=== PATIENT | female | born 1990 | race African-American/Black ===

== ENCOUNTER 2019-04-09 09:33 | Inpatient (IN) | payer OTHER ==
[~2019-04-09] VITALS: Ht 165.1 cm; Wt 90.7 kg
[2019-04-09] MEDS ORDERED: MAGNESIUM/ALUMINUM HYDROXIDE/SIMETHICONE 30ML UDC PO STA (11:22)
[2019-04-09] MEDS ORDERED: MORPHINE SULFATE 4 MG/ML CPJ (NOT FOR IM USE) IV STA (11:22)
[2019-04-09] MEDS ORDERED: FAMOTIDINE 20MG/2ML VIAL IV STA (11:22)
[2019-04-09] MEDS ORDERED: VISCOUS LIDOCAINE 2% 15 ML UDC PO STA (11:22)
[2019-04-09] MEDS ORDERED: SODIUM CHLORIDE 0.9% 1,000 ML IV ONE (11:22)
[2019-04-09 11:44] LABS: BASOPHILS % 0.9 % (0.0-2.0); EOSINOPHILS % 0.8 % (0.0-5.0); HEMATOCRIT. 39.2 % (36.0-48.0); HEMOGLOBIN. 12.8 g/dL (12.0-16.0); LYMPHOCYTES % 25.8 % (20.0-50.0); MEAN CORPUSCULAR HEMOGLOBIN 28.8 pg (28.0-32.0); MEAN CORPUSCULAR VOLUME 87.8 fL (81.0-99.0); MEAN PLATELET VOLUME 7.8 fl (7.4-10.4); NEUTROPHILS % 65.5 % (40.0-76.0); PLATELET 372 x1000/uL (130-400); RED BLOOD CELL COUNT 4.46 mill/uL (4.2-5.4); RED CELL DISTRIBUTION WIDTH 15.4 % (11.6-14.6)
[2019-04-09 11:48] LABS: CHLORIDE 105 mEq/L (98-107)
[2019-04-09 13:29] LABS: CLARITY URINE CLOUDY (CLEAR); COLOR URINE DARK YELLOW (YELLOW); KETONES URINE TRACE (NEGATIVE); LEUKOCYTE ESTERASE URINE 2+ (NEGATIVE); NITRITE URINE POSITIVE (NEGATIVE); OCCULT BLOOD URINE NEGATIVE (NEGATIVE); PROTEIN URINE NEGATIVE (NEGATIVE); SPECIFIC GRAVITY URINE 1.022 (1.005-1.030)
[2019-04-09] MEDS ORDERED: CEFTRIAXONE 1 G PREMIX 50 ML IV SCH (14:00)
[2019-04-09] MEDS ORDERED: MORPHINE SULFATE 4 MG/ML CPJ (NOT FOR IM USE) IV ONE (14:30)
[2019-04-09] MEDS ORDERED: CEFTRIAXONE 2 G PREMIX 50 ML IV ONE (14:30)
[2019-04-09] MEDS ORDERED: ONDANSETRON HCL 4MG/2ML INJ IV ONE (14:30)
[2019-04-09] MEDS ORDERED: MAGNESIUM/ALUMINUM HYDROXIDE/SIMETHICONE 30ML UDC PO PRN (18:15)
[2019-04-09] MEDS ORDERED: ACETAMINOPHEN 325MG TABLET PO PRN (18:15)
[2019-04-09] MEDS ORDERED: CLONIDINE 0.1MG TABLET PO PRN (18:15)
[2019-04-09] MEDS: DEXT 5%/0.45% NACL 1000ML 1,000 ML IV SCH (18:34)
[2019-04-09] MEDS: MORPHINE SULFATE 2 MG/ML CPJ (NOT FOR IM USE) IV PRN (20:44)
[2019-04-09] MEDS: ONDANSETRON HCL 4MG/2ML INJ IV PRN (20:45)
[2019-04-09 22:15] VITALS: BP 126/80
[2019-04-10] VITALS: BP 126/80
[2019-04-10] MEDS: MORPHINE SULFATE 2 MG/ML CPJ (NOT FOR IM USE) IV PRN ×3 (00:47→19:42)
[2019-04-10] MEDS: ONDANSETRON HCL 4MG/2ML INJ IV PRN ×2 (00:47→19:48)
[2019-04-10 04:00] VITALS: BP 142/80
[2019-04-10 05:54] LABS: BASOPHILS % 0.5 % (0.0-2.0); EOSINOPHILS % 0.8 % (0.0-5.0); HEMATOCRIT. 36.6 % (36.0-48.0); HEMOGLOBIN. 11.9 g/dL (12.0-16.0); LYMPHOCYTES % 29.7 % (20.0-50.0); MEAN CORPUSCULAR HEMOGLOBIN 28.9 pg (28.0-32.0); MEAN PLATELET VOLUME 8.2 fl (7.4-10.4); MONOCYTES % 7.5 % (2.0-8.0); NEUTROPHILS % 61.5 % (40.0-76.0); PLATELET 308 x1000/uL (130-400); RED BLOOD CELL COUNT 4.11 mill/uL (4.2-5.4); RED CELL DISTRIBUTION WIDTH 15.3 % (11.6-14.6)
[2019-04-10 06:45] LABS: CHLORIDE 110 mEq/L (98-107)
[2019-04-10 08:00] VITALS: BP 130/67
[2019-04-10 12:00] VITALS: BP 134/74
[2019-04-10 16:00] VITALS: BP 113/59
[2019-04-10] MEDS ORDERED: CEFTRIAXONE 1 G PREMIX 50 ML IV SCH (17:00)
[2019-04-10 18:36] LABS: AMYLASE 35 IU/L (25-115)
[2019-04-10] MEDS: DEXT 5%/0.45% NACL 1000ML 1,000 ML IV SCH ×2 (19:51)
[2019-04-10 20:00] VITALS: BP 122/71
[2019-04-11] VITALS: BP 110/53
[2019-04-11] MEDS: MORPHINE SULFATE 2 MG/ML CPJ (NOT FOR IM USE) IV PRN ×3 (01:12→23:58)
[2019-04-11 04:00] VITALS: BP 115/63
[2019-04-11 06:00] LABS: CHLORIDE 108 mEq/L (98-107)
[2019-04-11 06:30] LABS: BASOPHILS % 0.5 % (0.0-2.0); EOSINOPHILS % 1.3 % (0.0-5.0); HEMATOCRIT. 34.7 % (36.0-48.0); HEMOGLOBIN. 11.4 g/dL (12.0-16.0); MEAN CORPUSCULAR VOLUME 88.1 fL (81.0-99.0); MONOCYTES % 7.9 % (2.0-8.0); NEUTROPHILS % 50.3 % (40.0-76.0); PLATELET 318 x1000/uL (130-400); RED BLOOD CELL COUNT 3.94 mill/uL (4.2-5.4); RED CELL DISTRIBUTION WIDTH 15.2 % (11.6-14.6)
[2019-04-11 08:00] VITALS: BP 102/60
[2019-04-11] MEDS: DEXT 5%/0.45% NACL 1000ML 1,000 ML IV SCH (09:39)
[2019-04-11 12:00] VITALS: BP 145/77
[2019-04-11 15:41] LABS: HEPATITIS B SURFACE ANTIGEN NEGATIVE
[2019-04-11 16:00] VITALS: BP 139/76
[2019-04-11 16:07] LABS: HEPATITIS A AB IGM NEGATIVE (NEGATIVE)
[2019-04-11] MEDS: ONDANSETRON HCL 4MG/2ML INJ IV PRN (18:32)
[2019-04-11 20:00] VITALS: BP 116/61
[2019-04-12] VITALS: BP 130/82
[2019-04-12 04:00] VITALS: BP 112/66
[2019-04-12 07:06] LABS: CHLORIDE 108 mEq/L (98-107)
[2019-04-12 07:17] LABS: BASOPHILS % 0.6 % (0.0-2.0); EOSINOPHILS % 1.6 % (0.0-5.0); HEMATOCRIT. 34.7 % (36.0-48.0); HEMOGLOBIN. 11.7 g/dL (12.0-16.0); LYMPHOCYTES % 34.2 % (20.0-50.0); MEAN CORPUSCULAR HEMOGLOBIN 29.4 pg (28.0-32.0); MEAN CORPUSCULAR VOLUME 87.2 fL (81.0-99.0); MONOCYTES % 8.6 % (2.0-8.0); PLATELET 328 x1000/uL (130-400); RED BLOOD CELL COUNT 3.98 mill/uL (4.2-5.4); RED CELL DISTRIBUTION WIDTH 15.4 % (11.6-14.6)
[2019-04-12 08:00] VITALS: BP 119/67
[2019-04-12 12:00] VITALS: BP 127/64
[2019-04-12] MEDS: DEXT 5%/0.45% NACL 1000ML 1,000 ML IV SCH (12:54)
[2019-04-12] MEDS ORDERED: IOHEXOL-300 100 ML BOTTLE ONE (13:08)
[2019-04-12] MEDS ORDERED: SIMETHICONE 40 MG/0.6 ML 30ML ONE (13:08)
[2019-04-12] MEDS ORDERED: ROCURONIUM BROMIDE 10MG/ML VIAL 5ML IV ONE (14:04)
[2019-04-12] MEDS ORDERED: PROPOFOL 200MG/20ML VIAL IV ONE (14:04)
[2019-04-12] MEDS ORDERED: NEOSTIGMINE METHYLSULFATE 1MG/ML 10 ML VIAL ONE (14:04)
[2019-04-12] MEDS ORDERED: FENTANYL CITRATE/PF 50MCG/ML 2ML VIAL ONE (14:04)
[2019-04-12] MEDS ORDERED: MIDAZOLAM HCL 2 MG/2 ML VIAL ONE (14:05)
[2019-04-12] MEDS ORDERED: GLYCOPYRROLATE 0.2 MG/ML 2ML VIAL ONE ×2 (14:05→14:53)
[2019-04-12] MEDS ORDERED: ONDANSETRON HCL 4MG/2ML INJ ONE (14:17)
[2019-04-12] MEDS ORDERED: DEXAMETHASONE 4MG/ML 1ML VIAL ONE (14:17)
[2019-04-12] MEDS ORDERED: LABETALOL 5MG/ML SYR 20 MG/4 ML SYRINGE IV PRN (15:00)
[2019-04-12] MEDS ORDERED: HYDROMORPHONE HCL/PF 2MG/ML CPJ IV PRN (15:00)
[2019-04-12] MEDS ORDERED: MEPERIDINE HCL/PF 25MG/ML CPJ IV PRN (15:00)
[2019-04-12] MEDS: ONDANSETRON HCL 4MG/2ML INJ IV PRN ×3 (16:28→20:29)
[2019-04-12] MEDS: FAMOTIDINE 20MG/2ML VIAL IV NR ×2 (17:15→20:54)
[2019-04-12] MEDS ORDERED: FAMOTIDINE 20MG/2ML VIAL IV ONE (17:16)
[2019-04-13] VITALS: BP 114/61
[2019-04-13 04:00] VITALS: BP 115/54
[2019-04-13 06:34] LABS: BASOPHILS % 0.2 % (0.0-2.0); HEMATOCRIT. 37.3 % (36.0-48.0); HEMOGLOBIN. 12.2 g/dL (12.0-16.0); LYMPHOCYTES % 17.4 % (20.0-50.0); MEAN CORPUSCULAR HEMOGLOBIN 28.5 pg (28.0-32.0); MEAN CORPUSCULAR VOLUME 87.4 fL (81.0-99.0); MEAN PLATELET VOLUME 8.1 fl (7.4-10.4); MONOCYTES % 6.2 % (2.0-8.0); NEUTROPHILS % 76.2 % (40.0-76.0); PLATELET 323 x1000/uL (130-400); RED BLOOD CELL COUNT 4.27 mill/uL (4.2-5.4); RED CELL DISTRIBUTION WIDTH 15.3 % (11.6-14.6)
[2019-04-13 06:39] LABS: CHLORIDE 107 mEq/L (98-107)
[2019-04-13 08:00] VITALS: BP 116/55
[2019-04-13 12:00] VITALS: BP 118/68
[2019-04-13] MEDS: MORPHINE SULFATE 2 MG/ML CPJ (NOT FOR IM USE) IV PRN (12:30)
[2019-04-13] MEDS: DEXT 5%/0.45% NACL 1000ML 1,000 ML IV SCH (15:26)
[2019-04-13 16:01] VITALS: BP 116/55
== END 2019-04-13 16:11 | disposition home or self-care (01) ==
LOC: ER 10:09 → 6EST 17:15 → EDBEDREQ 17:22 → ENRESERV 20:58
PROVIDERS: ADMIT Family Medicine Adult Medicine; ATTEND Family Medicine Adult Medicine
PROC: BF131ZZ Fluoroscopy of Gallbladder and Bile Ducts using Low Osmolar Contrast (ICD-10-PCS; principal; 2019-04-12)
PROC: 0FC98ZZ Extirpation of Matter from Common Bile Duct, Via Natural or Artificial Opening Endoscopic (ICD-10-PCS; 2019-04-12)
DX: K80.70 Calculus of gallbladder and bile duct without cholecystitis without obstruction (principal); K76.0 Fatty (change of) liver, not elsewhere classified; R16.0 Hepatomegaly, not elsewhere classified; K80.50 Calculus of bile duct without cholangitis or cholecystitis without obstruction; E66.9 Obesity, unspecified; N39.0 Urinary tract infection, site not specified; Z79.899 Other long term (current) drug therapy
CPT/HCPCS: 36415; 71045; 74176; 74181; 74328; 76705; 80048; 80076; 81003; 82150; 83735; 84100; 86705; 86709; 86803; 87340; 93005; 93970; C1726; C1769; J0696; J1100; J2175; J2250; J2270; J2405; J2704; J2710; J3010; J3490; J7030; Q9967